=== PATIENT | female | born 1935 | race Caucasian/White ===

== ENCOUNTER 2017-02-02 18:41 | Inpatient (IN) | payer MEDICARE, OTHER ==
[~2017-02-02] VITALS: Ht 170.2 cm; Wt 89.4 kg
[2017-02-02 20:01] LABS: HEMOGLOBIN 12.3 gm/dl (12.3-15.3); RED BLOOD COUNT 3.99 M/UL (4.00-5.10); WHITE BLOOD COUNT 9.3 K/UL (4.5-11.0)
[2017-02-02 20:30] LABS: BUN/CREATININE RATIO 16 (0-10)
[2017-02-03] MEDS ORDERED: SYNTHROID25 MCG PO (03:00)
[2017-02-03] MEDS ORDERED: ZESTRIL20 MG PO (03:00)
[2017-02-03] MEDS ORDERED: ASMANEX220 MCG INH (03:01)
[2017-02-03] MEDS ORDERED: PRILOSEC OTC20 MG PO (03:01)
[2017-02-03] MEDS ORDERED: MULTIVITAMINS1 EAC1 PO (03:01)
[2017-02-03] MEDS ORDERED: VITAMIN C500 M1 PO (03:02)
[2017-02-03] MEDS ORDERED: FISH OIL 1,0001 EAC3 PO (03:02)
[2017-02-03] MEDS ORDERED: VITAMIN D 11000 UNIT PO (03:02)
[2017-02-03 04:17] LABS: HEMOGLOBIN 11.9 gm/dl (12.3-15.3); RED BLOOD COUNT 3.97 M/UL (4.00-5.10); WHITE BLOOD COUNT 10.1 K/UL (4.5-11.0)
[2017-02-03 04:46] LABS: BUN/CREATININE RATIO 19 (0-10)
[2017-02-04 04:20] LABS: HEMOGLOBIN 11.6 gm/dl (12.3-15.3); RED BLOOD COUNT 3.84 M/UL (4.00-5.10); WHITE BLOOD COUNT 8.5 K/UL (4.5-11.0)
[2017-02-04 04:46] LABS: BUN/CREATININE RATIO 20 (0-10)
[2017-02-05] MEDS ORDERED: ASPIRIN CHEWABL81 MG PO (11:27)
[2017-02-05] MEDS ORDERED: LIPITOR TAB 2020 MG PO (11:28)
[2017-02-05] MEDS ORDERED: LEVAQUIN500 MG PO (11:52)
[2017-02-05] MEDS ORDERED: CRESTOR20 MG PO (11:52)
[2017-02-05] MEDS ORDERED: COQ-1030 MG PO (11:58)
[2017-02-05] MEDS ORDERED: TYLENOL 325MG325 MG PO (12:01)
[2017-02-05] MEDS ORDERED: FISH OIL 10001000 MG PO (12:02)
== END 2017-02-05 13:15 | disposition home or self-care (01) | DRG 69 ==
LOC: ER1 18:41 → PROG CARE 21:15 → ZEROF 21:15 → CCU 02-03 03:02 → PROG CARE 02-03 16:24
PROVIDERS: Emergency Medicine; Physician Assistant; ADMIT Family Medicine
DX: G45.9 Transient cerebral ischemic attack, unspecified (principal); N39.0 Urinary tract infection, site not specified; I10 Essential (primary) hypertension; E03.9 Hypothyroidism, unspecified; E78.5 Hyperlipidemia, unspecified; Z88.1 Allergy status to other antibiotic agents; Z88.2 Allergy status to sulfonamides; K21.9 Gastro-esophageal reflux disease without esophagitis; Z79.82 Long term (current) use of aspirin
CPT/HCPCS: ECHO; 36415; 70450; 70544; 70551; 71010; 80048; 80053; 80061; 81001; 82550; 82553; 83874; 84484; 85025; 85027; 87077; 87086; 87186; 93005; 93306; 93880; 94640; 94664; 96374; 99285; J0696; J1650; J1956; J2405

== ENCOUNTER → 2017-02-28 | Outpatient (CLI) | payer MEDICARE, OTHER ==
[~2017-02-28] MED LIST: ASMANEX220 MCG INH; ASPIRIN CHEWABL81 MG PO; COQ-1030 MG PO; CRESTOR20 MG PO; FISH OIL 1,0001 EAC3 PO; FISH OIL 10001000 MG PO; LEVAQUIN500 MG PO; LIPITOR TAB 2020 MG PO; MULTIVITAMINS1 EAC1 PO; PRILOSEC OTC20 MG PO; SYNTHROID25 MCG PO; TYLENOL 325MG325 MG PO; VITAMIN C500 M1 PO; VITAMIN D 11000 UNIT PO; ZESTRIL20 MG PO
== END ==
LOC: KOH-I 10:55
DX: E04.0 Nontoxic diffuse goiter (principal); E03.8 Other specified hypothyroidism
CPT/HCPCS: 76536